=== PATIENT | male | born 1985 | race Two or more races ===

== ENCOUNTER 2024-11-23 17:27 | Emergency (ER) | payer OTHER ==
[~2024-11-23] VITALS: Ht 177.8 cm; Wt 104.5 kg
[2024-11-23 18:01] VITALS: BP 138/88; PULSE 76; RESP 18; TEMP 97.5; O2SAT 96
[2024-11-23] MEDS: ERYTHROMYCIN 0.5% 3.5 GM TUBE OPHTHALMIC OINTMENT OS ONE (21:24)
== END 2024-11-23 21:33 | disposition home or self-care (01) ==
LOC: EDBD 18:28 → EMS 18:28
DX: T15.02XA Foreign body in cornea, left eye, initial encounter (principal); W44.9XXA Unspecified foreign body entering into or through a natural orifice, initial encounter; Y93.89 Activity, other specified; Y92.89 Other specified places as the place of occurrence of the external cause; Y99.8 Other external cause status
CPT/HCPCS: 99283